=== PATIENT | female | born 1965 | race Caucasian/White ===

== ENCOUNTER → 2018-08-04 | Emergency (ER) | payer OTHER ==
[~2018-08-04] VITALS: Ht 172.7 cm; Wt 82.1 kg
== END | disposition left against medical advice (07) ==
LOC: ER 08:28
DX: Z53.20 Procedure and treatment not carried out because of patient's decision for unspecified reasons (principal)

== ENCOUNTER 2018-08-24 10:33 | Outpatient (CLI) | payer OTHER | END 2018-08-24 10:38 | disposition home or self-care (01) | LOC: TOM 10:33 | DX: M26.69 Other specified disorders of temporomandibular joint (principal) ==